=== PATIENT | female | born 1955 | race Caucasian/White ===

== ENCOUNTER → 2016-02-25 | Outpatient (CLI) | payer OTHER ==
--- NOTE | 2016-02-25 17:49 | MA ---
Screening Digital Mammogram With iCAD Analysis Clinical Indications: Routine screening. Technique: Standard cephalocaudal and mediolateral oblique projections are obtained. This examination is processed by the iCAD computer aided detection system. Comparison: December 2014, December 2013, November 2012, October 2011, October 2010, August 2009, [facility] 2008. Breast density: Type B; Scattered fibroglandular densities. Findings: CAD was reviewed. There is a possible developing area of architectural change noted in the central right breast on the craniocaudal view. No suspicious microcalcifications are identified. The left breast is stable in appearance. Impression: Possible developing right breast architectural change requires further evaluation, BI-RAD S 0. Recommendation: Spot compression assessment of the right breast with ultrasound suggested if the abno rmality persists on diagnostic evaluation. [facility] will send a result letter to the patient. Negative mammography should not preclude additional workup of a clinically suspicious finding. The patient's information is entered into a reminder system with a target due date for her next mammo gram.
== END ==
LOC: BRMIMAGING 14:36
DX: Z12.31 Encounter for screening mammogram for malignant neoplasm of breast (principal)
CPT/HCPCS: G0202

== ENCOUNTER → 2016-03-03 | Outpatient (CLI) | payer OTHER ==
--- NOTE | 2016-03-03 10:54 | MA ---
Diagnostic Digital Right Mammography CLINICAL HISTORY: 60-year-old female noted to have a possible developing right breast density seen on one view from a recent screening study. There is no indicated family history of breast cancer. TECHNIQUE: Digital mediolateral, rolled medial and rolled lateral craniocaudal views and small paddle spot compression craniocaudal view of the right breast are compared with previous studies dated 2016, December 26, 2014, December 19, 2013, December 10, 2012, November 10, 2011, October, September 07, 2009. Additionally, the exam is CAD checked. Breast Density: Type B. CAD Evaluation: Negative. FINDINGS: The area of previously seen possible architectural change in the retroareolar aspect of the right breast appears to have been related to superimposition of normal fibroglandular structures, an d the appearance is unchanged from studies in 2009 or 2010. Furthermore, there is no abnormality iden tified on the rolled craniocaudal views, or in the orthogonal mediolateral view. IMPRESSION: Benign mammography. BI-RADS Category 2. RECOMMENDATION: Routine annual mammographic screening. [facility] will send a result letter to the patient. Negative mammography should not preclude additional workup of a clinically suspicious finding. The patient's information is entered into a reminder system with a target due date for her next mammo gram.
== END ==
LOC: BRMIMAGING 09:47
DX: R92.2 Inconclusive mammogram (principal)
CPT/HCPCS: G0206

== ENCOUNTER → 2017-03-21 | Outpatient (CLI) | payer OTHER | LOC: FIMAGING 14:09 | PROVIDERS: ATTEND Physician Assistant Surgical | DX: Z12.31 Encounter for screening mammogram for malignant neoplasm of breast (principal) ==

== ENCOUNTER → 2018-03-30 | Outpatient (CLI) | payer OTHER | LOC: FIMAGING 15:40 | PROVIDERS: ATTEND Physician Assistant Surgical | DX: Z12.31 Encounter for screening mammogram for malignant neoplasm of breast (principal) ==